=== PATIENT | female | born 1980 | race African-American/Black ===

== ENCOUNTER 2016-11-04 19:42 | Emergency (ER) | payer OTHER ==
[2016-11-04 20:25] VITALS: BP 146/101
[2016-11-04] MEDS ORDERED: OXYCODONE-ACETAMINOPHEN 5-325 MG TABLET PO ONE (21:55)
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
[2016-11-04] MEDS ORDERED: OXYCODONE-ACETAMINOPHEN 5-325 MG TABLET ONE (22:01)
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
== END 2016-11-05 00:18 | disposition home or self-care (01) ==
LOC: ER 19:42
DX: M54.2 Cervicalgia (principal); M54.5 Low back pain; M54.6 Pain in thoracic spine; R25.2 Cramp and spasm; V49.40XA Driver injured in collision with unspecified motor vehicles in traffic accident, initial encounter
CPT/HCPCS: 72070; 72110; 72125; 99284

== ENCOUNTER 2016-12-09 19:50 | Emergency (ER) | payer MEDICAID, OTHER ==
--- NOTE | 2016-12-09 21:45 | ER Document Report ---
ED General - General Chief Complaint: High Blood Pressure Stated Complaint: BLOOD PRESSURE PROBLEMS Time Seen by Provider: 12/09/16 21:16 Notes: Patient is a 36-year-old female without past medical history who presents with several weeks of intermittent dizziness and headache. She was seen in urgent care today and was referred to the emergency department due to elevated blood pressures. Patient has never been formally diagnosed with essential hypertension but knows that she checked her blood pressure today at home and it was 190 systolic. She has never required treatment for her hypertension but admits that she took some of her mother's home blood pressure medication with some improvement of her symptoms. She has not noted that anything worsens her generalized dizziness or headache. She denies any significant headache at the time of my assessment. No focal weakness or numbness. Denies any head trauma. Nothing is new or different about her symptoms today and she knows that she went to the urgent care specifically because she wished to avoid a emergency department visit. TRAVEL OUTSIDE OF THE [place] IN LAST 30 DAYS: No - Related Data Allergies/Adverse Reactions: No Known Allergies Allergy (Unverified 05/27/15 06:34) Past Medical History - General Information source: Patient - Social History Smoking Status: Never Smoker Frequency of alcohol use: None Drug Abuse: None Lives with: Family Family History: Reviewed & Not Pertinent, Other - Migraine headaches Patient has suicidal ideation: No Patient has homicidal ideation: No Neurological Medical History: Reports: Hx Migraine Renal/ Medical History: Denies: Hx Peritoneal Dialysis Past Surgical History: Reports: Hx Hysterectomy Review of Systems - Review of Systems Notes: Constitutional: Negative for fever. HENT: Negative for sore throat. Eyes: Negative for visual changes. Cardiovascular: Negative for chest pain. Respiratory: Negative for shortness of breath. Gastrointestinal: Negative for abdominal pain, vomiting or diarrhea. Genitourinary: Negative for dysuria. Musculoskeletal: Negative for back pain. Skin: Negative for rash. Neurological: Positive for headache 10 point ROS negative except as marked above and in HPI. Physical Exam - Vital signs Vitals: Temp Pulse Resp BP Pulse Ox 98.7 F 65 18 120/60 100 12/09/16 20:12 12/09/16 20:12 12/09/16 20:12 12/09/16 20:12 12/09/16 20:12 Interpretation: Normal Notes: PHYSICAL EXAMINATION: GENERAL: Well-appearing, well-nourished and in no acute distress. HEAD: Atraumatic, normocephalic. EYES: Pupils equal round and reactive to light, extraocular movements intact, sclera anicteric, conjunctiva are normal. ENT: nares patent, oropharynx clear without exudates. Moist mucous membranes. NECK: Normal range of motion, supple without lymphadenopathy LUNGS: Breath sounds clear to auscultation bilaterally and equal. No wheezes rales or rhonchi. HEART: Regular rate and rhythm without murmurs ABDOMEN: Soft, nontender, normoactive bowel sounds. No guarding, no rebound. No masses appreciated. EXTREMITIES: Normal range of motion, no pitting or edema. No cyanosis. NEUROLOGICAL: Face symmetric. Tongue protrudes midline. Extraocular motions intact. Pupils are 2 mm and equally reactive. Normal speech, normal gait. 5 out of 5 strength in both the distal and proximal upper and lower extremities bilaterally. Sensation is grossly intact throughout. Finger to nose testing normal. Pronator drift normal. PSYCH: Normal mood, normal affect. SKIN: Warm, Dry, normal turgor, no rashes or lesions noted. Course - Re-evaluation Re-evalutation: 12/09/16 21:45 Presentation of asymptomatic hypertension. Patient denies any symptoms concerning for SAH, dissection, [place], or encephalopaty. Alert, oriented, and denies any symptoms at time of assessment. Normal neuro exam. Per [facility] policy guidelines, will therefore not obtain any labs or EKG at this time. I have started patient on hydrochlorothiazide and instructed her to check her blood pressure daily. I have discussed critical importance of follow up with PCP within 1 week and increased risk of devastating stroke, heart attack, respiratory distress, and other life threatening complications if blood pressure is not reduced appropriately. Diet and exercise habits also discussed. Patient will be discharged with return precautions and follow-up recommendations. - Vital Signs Vital signs: Temp Pulse Resp BP Pulse Ox 98.8 F 65 17 142/63 H 99 12/09/16 22:05 12/09/16 22:05 12/09/16 22:05 12/09/16 22:05 12/09/16 22:05 Discharge - Discharge Clinical Impression: Elevated blood pressure reading Condition: Good Disposition: HOME, SELF-CARE Additional Instructions: You were seen today for blood pressure that was high. This is a long-term risk factor for multiple medical problems including heart attack and stroke. However, the blood pressure in of itself will not cause you to have an acute stroke or heart attack over the course of just several days or weeks. You need to have a gradual reduction of your blood pressure back to normal levels over the next several months in conjunction with your primary care physician. Return if you develop headache, weakness, numbness, chest pain, pass out, or have any other symptoms that are concerning to you. Prescriptions: Hydrochlorothiazide 25 mg PO DAILY #30 tablet Referrals: ADELAIDA ESTRELLA MD [Primary Care Provider] - Follow up as needed
[2016-12-09] MEDS ORDERED: ACETAMINOPHEN 325 MG TABLET PO ONE (22:13)
[2016-12-09 22:19] VITALS: BP 142/63
== END 2016-12-09 22:21 | disposition home or self-care (01) ==
LOC: ER 19:50
DX: R03.0 Elevated blood-pressure reading, without diagnosis of hypertension (principal); R42 Dizziness and giddiness; R51 Headache
CPT/HCPCS: 99283; J3490

== ENCOUNTER 2017-07-21 20:45 | Emergency (ER) | payer MEDICAID ==
[2017-07-21] MEDS ORDERED: ACETAMINOPHEN 325 MG TABLET PO ONE (21:23)
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
--- NOTE | 2017-07-22 00:17 | ER Document Report ---
ED Fall - General Chief Complaint: Fall Stated Complaint: FALL Time Seen by Provider: 07/22/17 00:02 Mode of Arrival: Ambulatory Information source: Patient TRAVEL OUTSIDE OF THE [place] IN LAST 30 DAYS: No - HPI Patient complains to provider of: pain from fall Occurred: This evening Notes: Patient is here with complaints of pain after falling down some steps. She states she was walking down the steps at home she thinks she missed a step and then fell injuring her back and her right knee. She denies striking her head. No loss of consciousness. She is not on blood thinning medications. She denies any chest or abdominal pain. No nausea, vomiting, diarrhea. She denies any difficulty controlling her bowels or bladder at this time, although she states that she did urinate on herself whenever she fell initially. She is complaining of pain to the right knee. She is able to ambulate and bear weight but with pain. She does complain of some pain to the right lower back and the right posterior hip. No fever. No nausea, vomiting, diarrhea. No numbness, tingling, weakness. She denies any other complaints at this time. - Related data Allergies/Adverse Reactions: No Known Allergies Allergy (Verified 07/21/17 21:18) Past Medical History - Social History Smoking Status: Unknown if Ever Smoked Family History: Reviewed & Not Pertinent, Other - Migraine headaches Neurological Medical History: Reports: Hx Migraine Renal/ Medical History: Denies: Hx Peritoneal Dialysis Past Surgical History: Reports: Hx Hysterectomy Review of Systems - Review of Systems -: Yes All other systems reviewed and negative Physical Exam - Vital signs Vitals: Temp Pulse Resp BP Pulse Ox 97.7 F 68 20 134/82 H 98 07/21/17 21:22 07/21/17 21:22 07/21/17 21:22 07/21/17 21:22 07/21/17 21:22 - Notes Notes: GENERAL: alert, cooperative, nontoxic, no distress. HEAD: normocephalic, atraumatic EYES: conjunctiva pink without discharge, no external redness or swelling. EARS: no external swelling, no external redness NOSE: atraumatic, no external swelling MOUTH/THROAT: mucous membranes moist and pink, posterior pharynx without erythema, swelling, exudate. No trismus or drooling. NECK: soft, supple, full range of motion, no meningismus. CHEST: no distress, lungs clear and equal throughout. No wheezing, rales, rhonchi. CARDIAC: regular rate and rhythm, no murmur, normal capillary refill, normal pulses. No peripheral edema noted. ABDOMEN: soft, nontender, no pusatile mass. BACK: No CVA tenderness. [employer] palpation of the right lower back. No significant midline tenderness step-offs or crepitus. Mild tenderness to palpation of the right SI joint and right posterior hip. EXTREMITIES: Tenderness to palpation of the right anterior knee. No redness or swelling. No ligament instability. Normal straight leg raise. Normal pulse and sensation distally. NEURO: alert and oriented A&O x 3, no focal deficits, full range of motion of all extremities. 5 out of 5 flexion and extension of the lower extremities bilaterally. Patellar and Achilles deep tendon reflexes are +2 bilaterally. Normal sensation with no saddle anesthesia. Patient can dorsiflex the great toes bilaterally. PYSCH: appropriate mood, affect. Patient is cooperative. SKIN: pink, warm, dry, no rash. Course - Re-evaluation Re-evalutation: 07/22/17 00:14 Patient is nontoxic appearing with stable vitals. The patient fell down her steps and injured her right knee and her lower back. She did not hit her head. She is on a blood thinners. She complains of right knee pain as well as low back and right posterior hip pain. She denies any chest or abdominal pain. No numbness, tingling, weakness. No bowel or bladder dysfunction. No sign of cauda equina, epidural abscess bleed, discitis, osteomyelitis, AAA, pyelonephritis. X-rays of the right knee show no acute bony abnormality. She is a nonfocal exam at this time with no signs of infection or obvious ligament instability. Patient does have some mild tenderness to the right low back as well as the right SI joint and right posterior hip. I offered to order x-rays of the lumbar spine and pelvis, but the patient states that she would prefer to go home at this time. This point the patient will be discharged home with a prescription for Voltaren. Instructions to follow-up with her doctor if not better in 1 week, sooner for worsening pain, fever, abdominal pain, numbness, tingling, weakness, bowel or bladder dysfunction, or for any further concerns. The patient is noted to have elevated blood pressure during today's emergency department visit. The patient was informed of this finding. The patient was instructed that this may be related to pre-hypertension and requires further evaluation with a primary care provider. The patient has no hypertensive symptoms at this time. The patient's emergency department workup and current diagnosis were explained to the patient and or family. Follow-up instructions were provided. Medications if prescribed were discussed. Instructions for when to return to the emergency department including specific worrisome symptoms were discussed with the patient and/or family. - Vital Signs Vital signs: Temp Pulse Resp BP Pulse Ox 97.7 F 68 20 134/82 H 98 07/21/17 21:22 07/21/17 21:22 07/21/17 21:22 07/21/17 21:22 07/21/17 21:22 - Diagnostic Test Radiology reviewed: Image reviewed, Reports reviewed - Right knee x-ray negative Procedures - Immobilization Right knee Pre-Proc Neuro Vasc Exam: Normal Immobilizer type: Niles wrap Performed by: RN Post-Proc Neuro Vasc Exam: Normal Alignment checked and good: Yes Discharge - Discharge Clinical Impression: Right knee sprain Qualifiers: Encounter type: initial encounter Involved ligament of knee: unspecified ligament Qualified Code(s): S83.91XA - Sprain of unspecified site of right knee , initial encounter Contusion of lower back Qualifiers: Encounter type: initial encounter Qualified Code(s): S30.0XXA - Contusion of lower back and pelvis, initial encounter Condition: Stable Disposition: HOME, SELF-CARE Instructions: Ice & Elevation ([facility]), Sprained Knee ([facility]), Low Back Pain ([facility]) Additional Instructions: Take medications as prescribed. Apply ice to sore area. Wear Niles wrap as needed for pain control. Follow-up with your doctor if not better in 1 week, sooner for worsening pain, fever, numbness, tingling, weakness, bowel or bladder dysfunction, or for any further concerns. Your blood pressure was elevated during today's visit. Have this rechecked with your doctor. Prescriptions: Diclofenac Sodium [Voltaren 50 Mg Tablet.] 50 mg PO BID #20 tablet.dr Forms: Elevated Blood Pressure, Smoking Cessation Education Referrals: [facility] [Provider Group] - Follow up as needed
[2017-07-22 03:25] VITALS: BP 140/78
== END 2017-07-22 00:25 | disposition home or self-care (01) ==
LOC: ER 20:45
DX: S83.91XA Sprain of unspecified site of right knee, initial encounter (principal); S30.0XXA Contusion of lower back and pelvis, initial encounter; M54.9 Dorsalgia, unspecified; M25.561 Pain in right knee; M54.5 Low back pain; M25.551 Pain in right hip; R03.0 Elevated blood-pressure reading, without diagnosis of hypertension; W10.9XXA Fall (on) (from) unspecified stairs and steps, initial encounter
CPT/HCPCS: 99283; 73564; J3490

== ENCOUNTER 2017-08-02 15:43 | Emergency (ER) | payer MEDICAID ==
[2017-08-02] MEDS ORDERED: KETOROLAC TROMETHAMINE INJ/PF 30 MG/1 ML SDV IV ONE (17:50)
[2017-08-02] MEDS ORDERED: NORMAL SALINE 1000 ML 1,000 ML IV ONE (17:50)
[2017-08-02] MEDS ORDERED: DIPHENHYDRAMINE HCL 50 MG/ML VIAL IV ONE (17:50)
[2017-08-02] MEDS ORDERED: METOCLOPRAMIDE HCL INJ/PF 10 MG/2 ML SDV IV ONE (17:50)
--- NOTE | 2017-08-02 17:54 | ER Document Report ---
ED Headache - General Chief Complaint: Headache Stated Complaint: HEADACHE Time Seen by Provider: 08/02/17 17:35 Mode of Arrival: Ambulatory Information source: Patient TRAVEL OUTSIDE OF THE U.[place]. IN LAST 30 DAYS: No - HPI Patient complains to provider of: Headache Notes: Patient is here via EMS with complaints of headache. Patient states that she has been exposed to diarrhea and has had significant number of diarrhea stools since yesterday. No blood in her stool. She has had nausea, but denies any vomiting. She denies any abdominal pain. She denies any dysuria or hematuria. While at work today she developed a headache. She states that this feels like her previous migraines that she has had in the past. It was not sudden onset, thunderclap. It is generalized. It is worse with lights and sounds. She does have a nausea associated but denies any vomiting. No neck stiffness. She believes that she may have had a fever earlier today. No rash. No blurred or loss vision. No unilateral numbness, tingling, weakness. No chest pain or shortness of breath. She is not on any blood thinning medications. She states that this feels like previous headaches she has had in the past. - Related Data Allergies/Adverse Reactions: No Known Allergies Allergy (Verified 08/02/17 17:15) Past Medical History - Social History Smoking Status: Never Smoker Chew tobacco use (# tins/day): No Frequency of alcohol use: None Drug Abuse: None Family History: Reviewed & Not Pertinent, Other - Migraine headaches Patient has suicidal ideation: No Patient has homicidal ideation: No - Past Medical History Cardiac Medical History: Reports: Hx Hypertension Neurological Medical History: Reports: Hx Migraine Renal/ Medical History: Denies: Hx Peritoneal Dialysis Past Surgical History: Reports: Hx Hysterectomy Review of Systems - Review of Systems -: Yes All other systems reviewed and negative Physical Exam - Vital signs Vitals: Temp Pulse Resp BP Pulse Ox 98.8 F 89 18 132/81 H 99 08/02/17 15:53 08/02/17 15:53 08/02/17 15:53 08/02/17 15:53 08/02/17 15:53 - Notes Notes: GENERAL: alert, cooperative, nontoxic, no distress. HEAD: normocephalic, atraumatic EYES: conjunctiva pink without discharge, no external redness or swelling. Pupils are equal, round, reactive to light. EARS: no external swelling, no external redness NOSE: atraumatic, no external swelling MOUTH/THROAT: mucous membranes moist and pink, posterior pharynx without erythema, swelling, exudate. No trismus or drooling. NECK: soft, supple, full range of motion, no meningismus. CHEST: no distress, lungs clear and equal throughout. No wheezing, rales, rhonchi. CARDIAC: regular rate and rhythm, no murmur, normal capillary refill, normal pulses. No peripheral edema noted. BACK: full range of motion, no CVA tenderness. EXTREMITIES: full range of motion of all extremities. No redness, no swelling. NEURO: alert and oriented x 3, cranial nerves II through XII are grossly intact. Upper and lower extremities are equal throughout. Normal sensation. No focal deficits, full range of motion of all extremities. normal finger to nose. PYSCH: appropriate mood, affect. Patient is cooperative. SKIN: pink, warm, dry, no rash. Course - Re-evaluation Re-evalutation: 08/02/17 19:52 Patient is nontoxic appearing with stable vitals. She is here with complaints of diarrhea and headache. Diarrhea started yesterday. She has been around several other people with diarrhea. She has no abdominal pain. She has no abdominal tenderness on exam. She developed a headache earlier today. This headache feels consistent with her previous migraines that she has had in the past. She had no injury, she is on no blood thinners, she has a nonfocal neurological exam and has no neck stiffness or signs of meningitis or bleed. Patient was given IV fluids and a migraine cocktail and is feeling better at this time. Lab work is all unremarkable with no significant electrolyte abnormalities or signs of significant dehydration. I have rechecked on the patient, she states that she is feeling much better and is ready to go home. This point the patient will be discharged home with instructions to rest, drink plenty fluids, follow-up if her diarrhea does not improve within the next week, follow-up sooner for worsening headache, neck stiffness, high fever, persistent vomiting, blood in her stool, severe abdominal pain, or for any further concerns. The patient is noted to have elevated blood pressure during today's emergency department visit. The patient was informed of this finding. The patient was instructed that this may be related to pre-hypertension and requires further evaluation with a primary care provider. The patient has no hypertensive symptoms at this time. The patient's emergency department workup and current diagnosis were explained to the patient and or family. Follow-up instructions were provided. Medications if prescribed were discussed. Instructions for when to return to the emergency department including specific worrisome symptoms were discussed with the patient and/or family. - Vital Signs Vital signs: Temp Pulse Resp BP Pulse Ox 98.8 F 89 18 132/81 H 99 08/02/17 15:53 08/02/17 15:53 08/02/17 15:53 08/02/17 15:53 08/02/17 15:53 - Laboratory Result Diagrams: 08/02/17 18:18 08/02/17 18:18 Laboratory results interpreted by me: 08/02/17 18:18 Glucose 113 H AST 13 L Discharge - Discharge Clinical Impression: Diarrhea Qualifiers: Diarrhea type: unspecified type Qualified Code(s): R19.7 - Diarrhea, unspecified Headache Qualifiers: Headache type: unspecified Headache chronicity pattern: acute headache Intractability: not intractable Qualified Code(s): R51 - Headache Condition: Stable Disposition: HOME, SELF-CARE Instructions: Headache ([facility]), Diarrhea, Nonspecific ([facility]) Additional Instructions: Rest, drink plenty fluids. Tylenol and Motrin as needed for pain. Follow-up with your doctor if not better in 1 week, sooner for worsening diarrhea, blood in her stool, severe headache, neck stiffness, persistent vomiting, numbness, tingling, weakness, or for any further concerns. Your blood pressure was elevated during today's visit. Have this rechecked with your doctor. Forms: Elevated Blood Pressure, Smoking Cessation Education Referrals: [facility] [Provider Group] - Follow up as needed
[2017-08-02 18:32] LABS: ABSOLUTE BASOPHILS # (AUTO) 0.1 10^3/uL (0.0-0.2); ABSOLUTE EOSINOPHILS # (AUTO) 0.1 10^3/uL (0.0-0.6); ABSOLUTE LYMPHOCYTES (AUTO) 2.2 10^3/uL (0.5-4.7); ABSOLUTE MONOCYTES (AUTO) 0.4 10^3/uL (0.1-1.4); ABSOLUTE NEUT (AUTO) 4.4 10^3/uL (1.7-8.2); BASOPHILS % (AUTO) 0.8 % (0-2); EOSINOPHILS % (AUTO) 2.1 % (0-6); HEMATOCRIT 40.7 % (36.0-47.0); HEMOGLOBIN 13.4 g/dL (12.0-15.5); LYMPHOCYTES % (AUTO) 29.8 % (13-45); MEAN CORPUSCULAR HEMOGLOBIN 28.7 pg (27.0-33.4); MEAN CORPUSCULAR HGB CONC 32.9 g/dL (32.0-36.0); MEAN CORPUSCULAR VOLUME 87 fl (80-97); MONOCYTES % (AUTO) 6.2 % (3-13); PLATELET COUNT 296 10^3/uL (150-450); RED BLOOD COUNT 4.66 10^6/uL (3.72-5.28); RED CELL DISTRIBUTION WIDTH 13.9 % (11.5-14.0); SEGMENTED NEUTROPHILS % (AUTO) 61.1 % (42-78); TOTAL CELLS COUNTED % (AUTO) 100 %; WHITE BLOOD COUNT 7.2 10^3/uL (4.0-10.5)
[2017-08-02 18:45] LABS: ALANINE AMINOTRANSFERASE 32 U/L (9-52); ALBUMIN 4.1 g/dL (3.5-5.0); ALKALINE PHOSPHATASE 89 U/L (38-126); ANION GAP 14 (5-19); ASPARTATE AMINO TRANSFERASE 13 U/L (14-36); BILIRUBIN,DIRECT 0.2 mg/dL (0.0-0.4); BILIRUBIN,TOTAL 0.2 mg/dL (0.2-1.3); BLOOD UREA NITROGEN 7 mg/dL (7-20); CALCIUM 9.9 mg/dL (8.4-10.2); CARBON DIOXIDE 24 mmol/L (22-30); CHLORIDE 106 mmol/L (98-107); GLUCOSE 113 mg/dL (75-110); LIPASE 48.6 U/L (23-300); POTASSIUM 4.1 mmol/L (3.6-5.0); SODIUM 144.4 mmol/L (137-145); TOTAL PROTEIN 7.4 g/dL (6.3-8.2)
[2017-08-02 20:05] VITALS: BP 104/52
== END 2017-08-02 20:05 | disposition home or self-care (01) ==
LOC: ER 15:43
DX: R51 Headache (principal); R19.7 Diarrhea, unspecified; R11.0 Nausea; I10 Essential (primary) hypertension; Z86.69 Personal history of other diseases of the nervous system and sense organs
CPT/HCPCS: 99284; 96361; 96374; 96375; 36415; 83690; 85025; 80053; J1200; J1885; J2765; J7030

== ENCOUNTER → 2018-05-02 | Outpatient (CLI) | payer MEDICAID ==
--- NOTE | 2018-05-02 16:19 | RADIOLOGY REPORT (SQ) ---
EXAM DESCRIPTION: KNEE RIGHT 4 VIEWS COMPLETED DATE/TIME: 05/02/2018 4:00 pm REASON FOR STUDY: CHRONIC PAIN OF RT KNEE M25.561 PAIN IN RIGHT KNEE COMPARISON: None. NUMBER OF VIEWS: Four views. TECHNIQUE: AP, lateral, and both oblique radiographic images acquired of the right knee. LIMITATIONS: None. FINDINGS: MINERALIZATION: Normal. BONES: No acute fracture or dislocation. No worrisome bone lesions. JOINT: No effusion. SOFT TISSUES: No soft tissue swelling. No radio-opaque foreign body. OTHER: No other significant finding. IMPRESSION: NEGATIVE STUDY OF THE RIGHT KNEE. NO RADIOGRAPHIC EVIDENCE OF ACUTE INJURY. TECHNICAL DOCUMENTATION: JOB ID: [id number] [employer]- All Rights Reserved Reading location - IP/workstation name: [email or web address]
== END ==
LOC: OD 15:45
PROVIDERS: ATTEND Family Medicine
DX: M25.561 Pain in right knee (principal)

== ENCOUNTER 2018-05-22 21:11 | Emergency (ER) | payer OTHER, MEDICAID ==
[2018-05-22] MEDS ORDERED: IBUPROFEN 800 MG TABLET PO ONE (22:04)
[2018-05-22] MEDS ORDERED: CYCLOBENZAPRINE HCL 10 MG TABLET PO ONE (22:04)
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
[2018-05-23 00:12] VITALS: BP 106/83
== END 2018-05-23 00:12 | disposition home or self-care (01) ==
LOC: ER 21:11
DX: M54.5 Low back pain (principal); V49.40XA Driver injured in collision with unspecified motor vehicles in traffic accident, initial encounter; I10 Essential (primary) hypertension
CPT/HCPCS: 72110; 81025; 99283

== ENCOUNTER → 2018-08-03 | Outpatient (CLI) | payer MEDICAID ==
--- NOTE | 2018-08-03 09:30 | WOMENS IMAGING REPORT ---
EXAM DESCRIPTION: BILAT SCREENING MAMMO W/CAD COMPLETED DATE/TIME: 08/03/2018 9:05 am REASON FOR STUDY: Z12.31 ROUTINE BILATERAL SCREENING Z12.31 ENCNTR SCREEN MAMMOGRAM FOR MALIGNANT N EOPLASM OF DAVID COMPARISON: [facility] 2009 TECHNIQUE: Standard craniocaudal and mediolateral oblique views of each breast recorded using [employer] l acquisition. LIMITATIONS: None. FINDINGS: Findings present which are benign by mammographic criteria. No suspicious masses, calcifi cations or architectural distortion. Pertinent benign findings: Biopsy clip 6 o'clock position right breast Read with the assistance of CAD. .[facility] - R2 [employer] Version 9.2 Benign mammographic findings may include one or more of the following: Smooth masses, popcorn/rim/co arse calcifications, asymmetries, post-procedure changes, and lesions with long-standing stability. IMPRESSION: ASSESSMENT: BENIGN MAMMOGRAPHIC FINDINGS. BIRADS 2 BREAST DENSITY: c. The breasts are heterogeneously dense, which may obscure small masses. BIRAD: 2 BENIGN FINDING(S) RECOMMENDATION: ROUTINE SCREENING Please continue yearly bilateral screening tomosynthesis given heterogeneously dense tissue bilateral ly. COMMENT: The patient has been notified of the results by letter per MQSA requirements. Additional no tification policies are in place for contacting patient with suspicious or incomplete findings. Quality ID #225: The [employer] recommends an annual screening mammogram for women aged 40 years or over. This facility utilizes a reminder system to ensure that all patients receive reminder letters, and/or direct phone calls for appointments. This includes reminders for routine scr eening mammograms, diagnostic mammograms, or other Breast Imaging Interventions when appropriate. Th is patient will be placed in the appropriate reminder system. TECHNICAL DOCUMENTATION: FINDING NUMBER: (1) ASSESSMENT: (1) JOB ID: [id number] [employer]- All Rights Reserved Reading location - IP/workstation name: [email or web address]
== END ==
LOC: WI 07:59
PROVIDERS: ATTEND Family Medicine
DX: Z12.31 Encounter for screening mammogram for malignant neoplasm of breast (principal)
CPT/HCPCS: 77067

== ENCOUNTER → 2019-12-15 | Outpatient (CLI) | payer BC, MEDICAID ==
--- NOTE | 2019-12-15 15:37 | WOMENS IMAGING REPORT ---
EXAM DESCRIPTION: 3D SCREENING MAMMO BILAT IMAGES COMPLETED DATE/TIME: 12/15/2019 3:16 pm REASON FOR STUDY: Z12.31 ENCOUNTER FOR SCREENING MAMMOGRAM FOR MALIGNANT NEOPLASM OF BREAST Z12.31 ENCNTR SCREEN MAMMOGRAM FOR MALIGNANT NEOPLASM OF DAVID COMPARISON: 2019 EXAM PARAMETERS: Views: Standard craniocaudal and mediolateral oblique views of each breast recorded using digital acquisition and breast tomosynthesis. Read with the assistance of CAD. .ON LICENSE OF [facility] - R2 [employer] Version 9.2 LIMITATIONS: None. FINDINGS: No suspicious masses, suspicious calcifications or architectural distortion. No areas of c oncern. IMPRESSION: NEGATIVE MAMMOGRAM. BIRADS 1. BREAST DENSITY: b. There are scattered areas of fibroglandular density. BIRAD: ASSESSMENT: 1 NEGATIVE RECOMMENDATION: ROUTINE SCREENING COMMENT: The patient has been notified of the results by letter per MQSA requirements. Additional no tification policies are in place for contacting patient with suspicious or incomplete findings. Quality ID #225: The [employer] recommends an annual screening mammogram for women aged 40 years or over. This facility utilizes a reminder system to ensure that all patients receive reminder letters, and/or direct phone calls for appointments. This includes reminders for routine scr eening mammograms, diagnostic mammograms, or other Breast Imaging Interventions when appropriate. Th is patient will be placed in the appropriate reminder system. TECHNICAL DOCUMENTATION: FINDING NUMBER: (1) ASSESSMENT: (1) JOB ID: [id number] 2010 [employer]- All Rights Reserved Reading location - IP/workstation name: [email or web address]
== END ==
LOC: WI 14:00
PROVIDERS: ATTEND Family Medicine
DX: Z12.31 Encounter for screening mammogram for malignant neoplasm of breast (principal)
CPT/HCPCS: 77063; 77067